=== PATIENT | female | born 1945 | race American Indian/Alaskan Native ===

== ENCOUNTER 2017-10-12 08:12 | Outpatient (CLI) | payer MEDICARE ==
--- NOTE | 2017-10-12 08:52 | XRay Report ---
RIGHT KNEE RADIOGRAPHS INDICATION: Knee pain. COMPARISON: None similar at this institution. FINDINGS: Standing AP, oblique, straight lateral and sunrise views of the right knee demonstrate severe medial compartment narrowing with "[id number]" appearance, mild adjacent sclerosis and articular surface irregularity. Slight medial subluxation of the distal femur relative to the tibia as well. Severe medial compartment degenerative spurring. Medial patellofemoral joint space narrowing also suspected. No significant suprapatellar effusion. Patellar and tibial spines degenerative spurring also noted. Osteopenia/osteoporosis. CONCLUSION: Severe right knee osteoarthrosis with greatest involvement of the medial compartment, as detailed above. Thank you for the opportunity to participate in this patient's care.
== END 2017-10-12 08:13 | disposition home or self-care (01) ==
LOC: SPVIMAG 08:12
PROVIDERS: ATTEND Orthopaedic Surgery Sports Medicine
DX: M17.11 Unilateral primary osteoarthritis, right knee (principal); M25.861 Other specified joint disorders, right knee